=== PATIENT | female | born 1990 | race Caucasian/White ===

== ENCOUNTER 2018-10-07 16:15 | Emergency (ER) | payer BC ==
[2018-10-07] MEDS ORDERED: IPRATROPIUM/ALBUTEROL 0.5-2.5 MG/3 ML AMPUL NEB ONE (16:57)
--- NOTE | 2018-10-07 17:25 | ER Document Report ---
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 She has previously been treated with amoxicillin intermittently to help with this. I will plan for this patient undergo further investigation evaluation by second [facility] provider, the the appropriate diagnostics, disposition and workup will be deferred to that provider. I have performed a rapid screening examination and they will require further evaluation.
--- NOTE | 2018-10-07 17:47 | RADIOLOGY REPORT (SQ) ---
EXAM DESCRIPTION: CHEST 2 VIEWS COMPLETED DATE/TIME: 10/07/2018 5:37 pm REASON FOR STUDY: concern for pneumonia, left side effusion COMPARISON: None. EXAM PARAMETERS: NUMBER OF VIEWS: two views TECHNIQUE: Digital Frontal and Lateral radiographic views of the chest acquired. RADIATION DOSE: NA LIMITATIONS: none FINDINGS: LUNGS AND PLEURA: Multifocal airspace opacities are seen of the left lower lobe. No pneum othorax. No pleural effusion. MEDIASTINUM AND HILAR STRUCTURES: No masses or contour abnormalities. HEART AND VASCULAR STRUCTURES: Heart normal size. No evidence for failure. BONES: No acute findings. HARDWARE: None in the chest. OTHER: No other significant finding. IMPRESSION: Left lower lobe pneumonia. TECHNICAL DOCUMENTATION: JOB ID: [id number] [employer]- All Rights Reserved Reading location - IP/workstation name: [email or web address]
[2018-10-07 18:17] VITALS: BP 137/57
--- NOTE | 2018-10-07 18:32 | ER Document Report ---
HPI - HPI Time Seen by Provider: 10/07/18 16:39 Pain Level: 4 Notes: Patient is a 28-year-old female with a history of ciliary dyskinesia who presents to the ED complaining of dry nonproductive cough, left lower chest pain with a cough and deep breath, as well as occasional mild shortness of breath with wheezing. Patient states that she does have inhalers at home which do seem to help, but patient is concerned with pneumonia as she is colonizing Pseudomonas. 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 Patient states that she is otherwise eating and drinking without any difficulties. She is urinating normally and having normal bowel movements. Denies any drug allergies otherwise. Denies any headache, fever, neck pain, changes in vision/speech/mentation/hearing, URI, sore throat, chest pain, palpitations, syncope, abdominal pain, nausea/vomiting/diarrhea, urinary retention, dysuria, hematuria, or rash. - ROS Systems Reviewed and Negative: Yes All other systems reviewed and negative - DERM Skin Color: Normal Past Medical History - General Information source: Patient, Relative - Social History Smoking Status: Never Smoker Frequency of alcohol use: None Drug Abuse: None Family History: Reviewed & Not Pertinent Patient has suicidal ideation: No Patient has homicidal ideation: No Pulmonary Medical History: Reports: Hx Pneumonia Renal/ Medical History: Denies: Hx Peritoneal Dialysis Past Surgical History: Reports: Hx Tonsillectomy Vertical Provider Document - CONSTITUTIONAL Agree With Documented VS: Yes Notes: PHYSICAL EXAMINATION: GENERAL: Well-appearing, well-nourished and in no acute distress. A&Ox4. Answers questions appropriately. Moves comfortably w/o notable distress HEAD: Atraumatic, normocephalic. EYES: Pupils equal round and reactive to light, extraocular movements intact, sclera anicteric, conjunctiva are normal. ENT: EAC clear b/l. TM's intact b/l without erythema, fluid, or perforation. Nares patent and with clear discharge. oropharynx no erythema without exudates. No tonsilar hypertrophy without erythema or exudate. No palatine shift. Uvula midline. No tongue protrusion. No drooling, hoarseness, or airway compromise. Moist mucous membranes. No sinus tenderness. NECK: Normal range of motion, supple without lymphadenopathy. No rigidity/meningismus. LUNGS: Scant crackles left base. Minimal to no wheeze audible. No retractions or distress. Pt speaking in complete sentences w/o any difficulties. She is walking around the room w/o any exacerbation of symptoms. HEART: Regular rate and rhythm without murmurs, rubs, gallops. ABDOMEN: Soft, nontender, nondistended abdomen. No guarding, no rebound. No masses appreciated. Normal bowel sounds present. No CVA tenderness bilaterally. NEUROLOGICAL: Normal speech, normal gait. Normal sensory, motor exams PSYCH: Normal mood, normal affect. SKIN: Warm, Dry, normal turgor, no rashes or lesions noted. Course - Re-evaluation Re-evalutation: 10/07/18 18:37 Patient is an afebrile, well-hydrated 28-year-old female who presents to the ED with a left lower lobe pneumonia in the setting of a patient with ciliary dyskinesia that has been colonizing Pseudomonas. Vitals are acceptable without any significant tachycardia, tachypnea, or hypoxia. PE is otherwise unremarkable. See chest x-ray result. Patient has been able to ambulate around the room and speaking complete sentences without any exacerbation of symptoms. Patient does have a specialist that she sees regularly. Patient has had Levaquin prior which works well for her with the last dose being 3 months ago. She is nontoxic-appearing and is tolerating p.o. without difficulty. Patient is desiring to go home which I currently do not have any problem with at this time based on her presentation and physical exam. Low suspicion for any ACS, PE, pneumothorax, pericarditis, dissection, respiratory compromise, severe dehydration, sepsis, meningitis, or other systemic emergent condition at this time. Patient is aware that her condition can change from initial presentation and she needs to monitor symptoms closely and seek medical attention for any acute changes. I will be sending her home with Levaquin. Pt has inhalers at home. Recommend conservative measures for symptoms. Recheck with your PCM in 3-5 days. Return to the ED with any worsening/concerning symptoms otherwise as reviewed in discharge. Patient is in agreement. - Vital Signs Vital signs: Temp Pulse Resp BP Pulse Ox 98.4 F 86 137/57 H 100 10/07/18 16:22 10/07/18 16:22 10/07/18 16:22 10/07/18 16:22 Discharge - Discharge Clinical Impression: Left lower lobe pneumonia Qualifiers: Pneumonia type: due to unspecified organism Qualified Code(s): J18.1 - Lobar pneumonia, unspecified organism Condition: Stable Disposition: HOME, SELF-CARE Instructions: Pneumonia ([facility]), Levofloxacin Additional Instructions: Maintain adequate fluid intake Take meds as directed tylenol/ibuprofen as needed over the counter cold medication as needed for symptoms Humidified air may help Wash your hands regularly Wear a mask when coughing F/u: with your PCM in 3-5 days for a recheck Return to the ED with any fever, worsening pain, chest pain, palpitations, syncope, worsening FERNÁNDEZ, neck pain/stiffness, shortness of breath, wheezing, drooling, trouble swallowing/breathing, abdominal pain, n/v/d, rash, or worsening/concerning symptoms otherwise. Prescriptions: Levofloxacin [Levaquin 500 mg Tablet] 500 mg PO DAILY #7 tablet Forms: Elevated Blood Pressure Referrals: PULMONOLOGY [Provider Group] - Follow up as needed
== END 2018-10-07 18:53 | disposition home or self-care (01) ==
LOC: ER 16:15
DX: J18.1 Lobar pneumonia, unspecified organism (principal); K82.8 Other specified diseases of gallbladder
CPT/HCPCS: 94640; 99285; 71046; J7620